=== PATIENT | male | born 1995 | race Caucasian/White ===

== ENCOUNTER 2021-10-03 01:32 | Emergency (ER) | payer OTHER ==
[~2021-10-03] VITALS: Ht 182.9 cm; Wt 87.5 kg
[2021-10-03 02:32] LABS: ABSOLUTE NEUTROPHILS 4.9 thou/uL (1.4-8.2); BASOPHILS 0.7 % (0.0-2.0); EOSINOPHILS 1.9 % (0.0-3.0); HEMATOCRIT 42.7 % (42.0-52.0); HEMOGLOBIN 14.4 gm/dL (14.0-18.0); LYMPHOCYTES 26.9 % (24.0-44.0); MCH 29.9 pg (26.0-34.0); MCHC 33.7 g/dL (28.0-37.0); MCV 88.7 fL (80.0-100.0); MONOCYTES 8.5 % (1.0-8.0); PLATELET COUNT 254 thou/uL (150-400); RBC 4.82 mil/uL (4.50-6.00); RDW 13.1 % (10.5-14.5); WBC 7.9 thou/uL (4.0-11.0)
[2021-10-03 03:04] LABS: CALCIUM 8.2 mg/dL (8.5-10.1); CREATININE 0.9 mg/dL (0.7-1.3); POTASSIUM 3.5 mmol/L (3.5-5.1)
[2021-10-03 03:25] LABS: ALBUMIN 3.6 g/dL (3.4-5.0); TOTAL BILIRUBIN 0.3 mg/dL (0.2-1.0); TOTAL PROTEIN 6.6 g/dL (6.4-8.2)
[2021-10-03 05:50] VITALS: BP 122/58
--- NOTE | 2021-10-03 07:18 | EKG ---
[place] [address] [facility] [place] [address] ELECTROCARDIOGRAM REPORT Name: MELVINA LEAL Room #: DEP Alcides#: [id number] Admission: 10/03/21 Attend Phys: Discharge: 10/03/21 Date of : [birth year] Report #: [id number] [facility] ED Test Date: 2021-10-03 Test Time: 01:38:06 Pat Name: MELVINA LEAL Department: Room: Gender: M [employer]: SOHA : 1995 Requested By: Rubin Mcclendon Order Number: [id number] MD: Kvng Quiles Measurements Intervals Kimper Rate: 66 P: 65 AL: 117 QRS: 66 QRSD: 107 T: 43 QT: 380 QTc: 399 Interpretive Statements Sinus rhythm Borderline short AL interval Probable left atrial enlargement RSR' in V1 or V2, probably normal variant Baseline wander in lead(s) V1 No previous ECG available for comparison Electronically Signed On 10-03-2021 7:18:03 [employer] by Kvng Quiles [email or web address] <ELECTRONICALLY SIGNED> By: Kvng Quiles MD, [facility] 10/03/21 0718 013 7 Kvng Quiles MD, FACC /EPI
== END 2021-10-03 05:52 | disposition home or self-care (01) ==
LOC: ER 01:32
PROVIDERS: Emergency Medicine
DX: F41.9 Anxiety disorder, unspecified (principal); R07.89 Other chest pain; R00.2 Palpitations